=== PATIENT | female | born 1975 | race Caucasian/White ===

== ENCOUNTER 2017-11-26 11:59 | Inpatient (IN) | payer MEDICAID ==
[~2017-11-26] VITALS: Ht 170.2 cm; Wt 75.0 kg
[2017-11-26] MEDS ORDERED: OXYTOCIN 30U/ 0.9% NaCL 500ML 500 ML IV SCH (12:22)
[2017-11-26] MEDS ORDERED: PLEASE ENTER HEIGHT AND WEIGHT MC SCH (12:30)
[2017-11-26] MEDS ORDERED: LACTATED RINGERS 1,000 ML IVBOLUS ONE (12:30)
[2017-11-26] MEDS ORDERED: LACTATED RINGERS 1,000 ML IV SCH ×3 (12:30→14:22)
[2017-11-26] MEDS ORDERED: SODIUM CITRATE/CITRIC ACID 30 ML UDC PO ONE (12:30)
[2017-11-26] MEDS ORDERED: PLEASE ENTER ALLERGIES MC SCH (12:30)
[2017-11-26] MEDS ORDERED: METOCLOPRAMIDE 5 MG/ML, 2ML IV ONE (12:30)
[2017-11-26 12:51] VITALS: BP 113/69
[2017-11-26 12:51] LABS: BASOPHILS # (AUTO) 0.13 x10^3/uL (0-0.1); BASOPHILS % (AUTO) 2 % (0-1); EOSINOPHILS # (AUTO) 0.05 x10^3/uL (0-0.4); EOSINOPHILS % (AUTO) 1 % (1-7); LYMPHOCYTES # (AUTO) 1.52 x10^3/uL (1-3.4); LYMPHOCYTES % (AUTO) 20 % (22-44); MD NO; MEAN CORPUSCULAR HEMOGLOBIN 28.9 pg (27.0-34.8); MEAN CORPUSCULAR HGB CONC 33.6 g/dL (32.4-35.8); MEAN CORPUSCULAR VOLUME 86.1 fL (80-100); MEAN PLATELET VOLUME 7.4 fL (7.4-10.4); MONOCYTES % (AUTO) 7 % (2-9); NEUTROPHILS # (AUTO) 5.28 x10^3/uL (1.8-6.8); NEUTROPHILS % (AUTO) 71 % (42-75); PLATELET COUNT 300 x10^3/uL (130-400); RED BLOOD COUNT 4.11 x10^6/uL (3.82-5.3); RED CELL DISTRIBUTION WIDTH 12.8 % (9.6-15.2)
[2017-11-26] MEDS: LACTATED RINGERS 1,000 ML IV SCH ×2 (13:21→20:22)
[2017-11-26] MEDS ORDERED: NEWBORN KIT ONE (13:36)
[2017-11-26] MEDS ORDERED: SODIUM CITRATE/CITRIC ACID 30 ML UDC ONE (13:37)
[2017-11-26] MEDS ORDERED: METOCLOPRAMIDE 5 MG/ML, 2ML ONE (13:37)
[2017-11-26] MEDS ORDERED: OXYTOCIN 30U/ 0.9% NaCL 500ML 500 ML ONE (13:37)
[2017-11-26] MEDS ORDERED: METHYLERGONOVINE 0.2 MG/ML IM ONE (14:00)
[2017-11-26] MEDS ORDERED: MISOPROSTOL 200 MCG TABLET ONE (14:00)
[2017-11-26] MEDS ORDERED: THROMBIN 5,000 UNIT VIAL TP ONE (14:00)
[2017-11-26] MEDS ORDERED: FENTANYL PF 100 MCG/2ML ONE (14:10)
[2017-11-26] MEDS ORDERED: CEFAZOLIN 1,000 MG ONE (14:10)
[2017-11-26] MEDS ORDERED: ONDANSETRON 2MG/ML, 2ML ONE (14:10)
[2017-11-26] MEDS ORDERED: OXYTOCIN 10 UNITS/ML, 1ML ONE (14:10)
[2017-11-26] MEDS ORDERED: HYDROmorphone 2 MG/ML, 1ML ONE (14:11)
[2017-11-26] MEDS ORDERED: SODIUM CHLORIDE 0.9% PF 10ML ONE ×2 (14:12)
[2017-11-26] MEDS ORDERED: BUPIVACAINE 0.75% PF 10ML ONE (14:17)
[2017-11-26] MEDS: OXYTOCIN 30U/ 0.9% NaCL 500ML 500 ML IV SCH (14:22)
[2017-11-26] MEDS ORDERED: HYDROcodone/APAP 5/325 TABLET PO PRN ×2 (14:30)
[2017-11-26] MEDS ORDERED: METOCLOPRAMIDE 5 MG/ML, 2ML IV PRN (14:30)
[2017-11-26] MEDS ORDERED: IBUPROFEN 600 MG TABLET PO PRN (14:30)
[2017-11-26] MEDS ORDERED: BISACODYL 10 MG SUPP PR PRN (14:30)
[2017-11-26] MEDS ORDERED: MEPERIDINE/PF 50 MG/ML IM PRN (14:30)
[2017-11-26] MEDS ORDERED: ACETAMINOPHEN 325 MG TABLET PO PRN (14:30)
[2017-11-26] MEDS ORDERED: MISOPROSTOL 200 MCG TABLET PR PRN (14:30)
[2017-11-26] MEDS ORDERED: ONDANSETRON 2MG/ML, 2ML IV PRN (14:30)
[2017-11-26] MEDS ORDERED: EPHEDRINE 50 MG/ML, 1ML ONE (14:33)
[2017-11-26] MEDS: KETOROLAC 30 MG/1 ML IV SCH ×2 (18:06→23:44)
[2017-11-26 18:28] VITALS: BP 125/77
[2017-11-26 20:00] VITALS: BP 112/65
[2017-11-26] MEDS ORDERED: ONDANSETRON 4 MG TABLET ONE (20:11)
[2017-11-26] MEDS ORDERED: ONDANSETRON ODT 4 MG PO PRN (20:30)
[2017-11-26] MEDS ORDERED: OXYcodone/APAP 5/325MG TABLET ONE (23:32)
[2017-11-26] MEDS: OXYcodone/APAP 5/325MG TABLET PO PRN (23:44)
[2017-11-26 23:45] VITALS: BP 111/65
[2017-11-27] MEDS: OXYTOCIN 30U/ 0.9% NaCL 500ML 500 ML IV SCH (00:22)
[2017-11-27] MEDS: OXYcodone/APAP 10/325MG TABLET PO PRN ×3 (04:02→18:05)
[2017-11-27 04:07] VITALS: BP 104/62
[2017-11-27] MEDS: LACTATED RINGERS 1,000 ML IV SCH (04:22)
[2017-11-27 06:03] LABS: BASOPHILS # (AUTO) 0.01 x10^3/uL (0-0.1); BASOPHILS % (AUTO) 0 % (0-1); EOSINOPHILS # (AUTO) 0.09 x10^3/uL (0-0.4); EOSINOPHILS % (AUTO) 1 % (1-7); LYMPHOCYTES # (AUTO) 1.07 x10^3/uL (1-3.4); LYMPHOCYTES % (AUTO) 12 % (22-44); MD NO; MEAN CORPUSCULAR HEMOGLOBIN 29.2 pg (27.0-34.8); MEAN CORPUSCULAR HGB CONC 33.8 g/dL (32.4-35.8); MEAN CORPUSCULAR VOLUME 86.5 fL (80-100); MEAN PLATELET VOLUME 7.3 fL (7.4-10.4); MONOCYTES # (AUTO) 0.45 x10^3/uL (0.2-0.8); MONOCYTES % (AUTO) 5 % (2-9); NEUTROPHILS # (AUTO) 7.38 x10^3/uL (1.8-6.8); NEUTROPHILS % (AUTO) 82 % (42-75); PLATELET COUNT 236 x10^3/uL (130-400); RED BLOOD COUNT 3.18 x10^6/uL (3.82-5.3); RED CELL DISTRIBUTION WIDTH 13.5 % (9.6-15.2)
[2017-11-27] MEDS: KETOROLAC 30 MG/1 ML IV SCH ×4 (06:08→23:47)
[2017-11-27 08:00] VITALS: BP 92/48
[2017-11-27] MEDS: DOCUSATE 100 MG CAPSULE PO PRN (08:47)
[2017-11-27] MEDS: PRENATAL VIT/IRON/FA 1 EACH TABLET PO SCH (08:47)
[2017-11-27] MEDS ORDERED: SIMETHICONE 80 MG CHEW TAB ONE (09:40)
[2017-11-27] MEDS: SIMETHICONE 80 MG CHEW TAB PO PRN ×3 (09:43→23:47)
[2017-11-27 19:25] VITALS: BP 116/74
[2017-11-27] MEDS ORDERED: DIPH,PERTUSS(ACELL),TET VAC/PF NC IM-VACC ONE ×2 (21:57→22:30)
[2017-11-27] MEDS: OXYcodone/APAP 5/325MG TABLET PO PRN (23:47)
[2017-11-28] MEDS: KETOROLAC 30 MG/1 ML IV SCH ×2 (06:00→12:35)
[2017-11-28 07:00] VITALS: BP_SYST 103; BP_SYST 115; BP_DIAS 66; BP_DIAS 69
[2017-11-28] MEDS: DOCUSATE 100 MG CAPSULE PO PRN (08:28)
[2017-11-28] MEDS: SIMETHICONE 80 MG CHEW TAB PO PRN ×2 (08:28→13:31)
[2017-11-28] MEDS: PRENATAL VIT/IRON/FA 1 EACH TABLET PO SCH (08:28)
[2017-11-28] MEDS: OXYcodone/APAP 10/325MG TABLET PO PRN ×2 (08:28→13:26)
[2017-11-28] MEDS ORDERED: IBUP-1222 PO (14:19)
[2017-11-28] MEDS ORDERED: OXYC-302 PO (14:20)
[2017-11-28] MEDS ORDERED: FERR324T5 PO (14:20)
[2017-11-28] MEDS ORDERED: pericolace PO (14:27)
== END 2017-11-28 17:18 | disposition home or self-care (01) | DRG 766 ==
LOC: LDIP 12:17 → 2NW 17:42
PROVIDERS: ADMIT Obstetrics & Gynecology Female Pelvic Medicine and Reconstructive Surgery; ATTEND Obstetrics & Gynecology Female Pelvic Medicine and Reconstructive Surgery
PROC: 10D00Z1 Extraction of Products of Conception, Low, Open Approach (ICD-10-PCS; principal; 2017-11-26)
PROC: 0UB70ZZ Excision of Bilateral Fallopian Tubes, Open Approach (ICD-10-PCS; 2017-11-26)
DX: O34.211 Maternal care for low transverse scar from previous cesarean delivery (principal); D25.2 Subserosal leiomyoma of uterus; O34.13 Maternal care for benign tumor of corpus uteri, third trimester; J45.909 Unspecified asthma, uncomplicated; O99.52 Diseases of the respiratory system complicating childbirth; Z30.2 Encounter for sterilization; Z3A.39 39 weeks gestation of pregnancy; Z37.0 Single live birth
CPT/HCPCS: 36415; 85025; 86850; 86900; 88302; 90715; J0690; J1170; J1885; J2405; J3010; Q0162; J2210; J2590; J2765; J7120